=== PATIENT | male | born 1970 | race Caucasian/White ===

== ENCOUNTER 2017-01-22 05:10 | Emergency (ER) | payer MEDICAID ==
[2011-12-14 13:50] VITALS: BMI 21.0
== END 2017-01-22 06:16 | disposition home or self-care (01) ==
LOC: D.ER 05:10
DX: J02.9 Acute pharyngitis, unspecified (principal)

== ENCOUNTER → 2017-06-09 08:51 | Outpatient (CLI) | payer MEDICAID ==
[2011-12-14 13:50] VITALS: BMI 21.0
== END | disposition home or self-care (01) ==
LOC: D.CT 08:51
DX: I70.202 Unspecified atherosclerosis of native arteries of extremities, left leg (principal); M79.605 Pain in left leg

== ENCOUNTER → 2019-06-18 14:09 | Outpatient (CLI) | payer OTHER ==
[2011-12-14 13:50] VITALS: BMI 21.0
[~2019-06-18 14:09] MED LIST: BAYER CHEWABLE81 MG PO; ZANTAC300 MG PO
--- NOTE | 2019-06-24 13:29 | ST ---
PATIENT:PRABHU BENITEZ MEDICAL RECORD: [id number] SEX: M LOCATION:[facility] ORDER #: ADMISSION DATE: 06/18/19 AGE OF PATIENT: 48 REFERRING PHYSICIAN: INTERPRETING PHYSICIAN: ANDRE MARTINEZ MD DATE OF SERVICE: 06/18/2019 PROCEDURE: Treadmill stress test. Baseline ECG is normal. Exercised for 10 minutes on Rai protocol. Maximum heart rate 167 beats per minute, greater than 85% max predicted. No ECG changes of ischemia. No symptoms of ischemia. Normal blood pressure response to exercise. No arrhythmias noted. Good exercise tolerance for age. TRANSINT:[id number] Voice Confirmation ID: [id number] DOCUMENT ID: [id number] ANDRE MARTINEZ MD at 1329 CC: [id number] DICTATION DATE: 06/20/19 1303 [employer]: 06/20/19 1319 DEP CLI 06/18/[address] [id number]
[2019-07-02 16:55] VITALS: BMI 23.1
== END | disposition home or self-care (01) ==
LOC: D.HCCARDIO 14:09
PROVIDERS: ATTEND Internal Medicine Interventional Cardiology
DX: I20.9 Angina pectoris, unspecified (principal)

== ENCOUNTER 2019-07-02 11:17 | Outpatient (CLI) | payer OTHER ==
[~2019-07-02] VITALS: Ht 182.9 cm; Wt 77.3 kg
--- NOTE | ~2019-07-02 | HEMODYNAMI ---
PATIENT:PRABHU BENITEZ MEDICAL RECORD: [id number] : 72 LOCATION:[facility] ADMISSION DATE: 07/02/19 Generatedon:07/02/201916:10 Patient name: PRABHU BENITEZ Patient #: [id number] SSN: [id number] : 1970 Date of study: 07/02/2019 Page: Of Hemodynamic Procedure Report Patient Data Patient Demographics Procedure consent was obtained First Name: PRABHU Gender: Male Last Name: ELI : 1970 [facility] Initial: JM Age: 48 year(s) Patient #: [id number] Race: SSN: [id number] Additional ID: [id number] Contact details Address: [address] [place] [address] [address] State: [place] City: [facility] Zip code: [address] Past Medical History Allergies: No known allergies Admission Admission Data Admission Date: 07/02/2019 Admission Time: 11:17 Arrival Date: 07/02/2019 Arrival Time: 0:00 [facility] #: [id number] Height (in.): 71.65 BSA: 1.98 (m2) Height (cm.): 182 BMI: 23.25 (kg/m2) Weight (lbs.): 169.76 Weight (kg.): 77 Lab Results Lab Result Date: 07/02/2019 Lab Result Time: 0:00 Biochemistry Name Units Result Min Max BUN mg/dl 13 --(--*-)-- 7 18 Creatinine mg/dl 0.8 --(-*--)-- 0.6 1.3 eGFR ml/min 90 --(*---)-- 90 120 NONAFRICAN CBC Name Units Result Min Max Hemoglobin g/dl 15.3 --(-*--)-- 13.5 17.5 Procedure Procedure Types Cath Procedure Diagnostic Procedure PPM/ICD PPM Dual Implant Procedure Description Procedure Date Procedure Date: 07/02/2019 Procedure Start Time: 15:04 Procedure Staff Name Function Willam Bravo MD Assisting physician Emerson White MD Performing Physician Oliva Warren RT Monitor Maureen Noland RT Monitor Nicky Lara RN Nurse Lynsey Otoole RT Scrub Procedure Data Cath Procedure Fluoroscopy Diagnostic fluoroscopy Total fluoroscopy Time: 1.7 time: 1.7 min min Diagnostic fluoroscopy Total fluoroscopy dose: 39 dose: 39 mGy mGy Estimated blood loss: 10 ml Procedure Complications No complications Procedure Medications Medication Administration Route Dosage 0.9% NaCl I.V. 100 ml/hr Oxygen etCO2 Nasal cannula 2 l/min Lidocaine 1% added to field 20 Ancef (1Gm/50ml NS) I.V.P.B 1 g Ancef Irrigation Topical 1 g (1gm/500ml NS) Versed I.V. 2 mg Fentanyl I.V. 100 mcg Versed I.V. 2 mg Fentanyl I.V. 50 mcg Versed I.V. 2 mg Fentanyl I.V. 50 mcg Versed I.V. 1 mg Fentanyl I.V. 50 mcg Phenergan I.V. 25 mg Hemodynamics Rest BSA: 1.98 (m2) HGB: 15.3 (g/dl) O2 Consumption: Estimated: 228.76 (ml/min) O2 Co nsumption indexed: Estimated:115.54 (ml/min/m) Heart Rate: 58 (bpm) Snapshots Pre Cath Intra NCS Post Cath Vital Signs Time Heart Resp SPO2 etCO2 NIBP (mmHg) Rhythm Pain Sedation Rate (ipm) (%) (mmHg) Status Level (bpm) 14:56:24 59 17 100 33.1 125/81(93) SB 0 (11) 10(A) , No pain 15:00:30 56 18 100 32.4 130/77(88) SB 0 (11) 10(A) , No pain 15:04:43 58 17 96 33.1 120/62(77) SB 0 (11) 10(A) , No pain 15:08:49 58 16 97 33.8 110/72(87) SB 0 (11) 10(A) , No pain 15:12:53 57 14 96 21 108/70(98) SB 0 (11) 10(A) , No pain 15:16:55 55 17 98 24 118/73(85) SB 0 (11) 10(A) , No pain 15:32:27 55 14 100 38.3 Measuring SB 0 (11) 10(A) , No pain 15:32:50 57 12 100 40.6 114/74(93) SB 0 (11) 10(A) , No pain 15:36:58 56 12 100 39.8 114/78(95) SB 0 (11) 10(A) , No pain 15:41:05 52 16 100 37.6 105/73(83) SB 0 (11) 9(A) , No pain 15:45:11 51 18 98 44.3 107/68(84) SB 0 (11) 9(A) , No pain 15:49:17 80 17 99 46.6 103/75(94) Paced 0 (11) 9(A) , No pain 15:53:25 59 18 99 45.8 113/67(84) Paced 0 (11) 9(A) , No pain 15:57:31 60 11 99 42.1 108/75(86) Paced 0 (11) 10(A) , No pain 16:01:36 70 14 100 31.5 117/76(91) Paced 0 (11) 10(A) , No pain 16:05:44 15 98 33.8 134/88(103) Paced 0 (11) 10(A) , No pain Medications Time Medication Route Dose Verified Delivered Reason Notes Effecti veness by by 14:55:23 0.9% NaCl I.V. 100 Emerson Chena used for ml/hr [place] Marco procedure MD AZAR 14:55:31 Oxygen etCO2 2 Emerson Nicky used for Nasal l/min Christopher Marco procedure cannula RN 14:55:41 Lidocaine added 20ml Willam Quarles for local 1% to vial Gaby Bravo MD anesthetic field x2 14:55:49 Ancef I.V.P.B 1 g Jain Nicky used for (1Gm/50ml Gaby Lara procedure NS) RN 14:56:00 Ancef Topical 1 g Willam Contrerasian used for Irrigation Gaby Bravo MD procedure (1gm/500ml NS) 15:04:38 Versed I.V. 2 mg Emerson Nicky for [place] Marco sedation RN 15:04:45 Fentanyl I.V. 100 Emerson Hicksyla for mcg [place] Marco sedation RN 15:09:52 Versed I.V. 2 mg Emerson Nicky for [facility] Keyshawn Lara sedation MD AZAR 15:09:56 Fentanyl I.V. 50 Emerson Nicky for mcg St Keyshawn Lara sedation MD AZAR 15:14:19 Versed I.V. 2 mg Emerson Nicky for St Keyshawn reese MD, RN 15:14:25 Fentanyl I.V. 50 Emerson Nick[address] for mcg St Keyshawn reese MD, RN 15:36:20 Versed I.V. 1 mg Emerson Nicky for St Keyshawn reese MD, RN 15:36:26 Fentanyl I.V. 50 Emerson Nick[address] for mcg St Keyshawn reese MD, RN 16:07:35 Phenergan I.V. 25 mg Emerson Nicky for nausea St Keyshawn Lara MD, RN Procedure Log Time Note 14:24:17 Procedure Status Elective Heart Cath (OP). 14:24:20 Time tracking: Regular hours (M-F 7:00 - 5:00) 14:24:20 Nicky Lara RN sent for patient. Start room use. 14:24:24 Plan of Care:Hemodynamics will remain stable., Cardiac rhythm will remain stable., Comfort level will be maintained., Respiratory function will remain adequate., Patient/ family verbilizes understanding of procedure., Procedure tolerated without complication., Recovers from procedure without complications.. 14:32:41 Informed consent obtained and on chart 14:34:27 Arrival Date: 07/02/2019 12:00:00 AM 14:35:06 Patient Height : 71.65 inches 14:35:13 Patient Weight : 169.76 lbs 14:36:19 Lab Result : eGFR NONAFRICAN 90 ml/min 14:36:19 Lab Result : Hemoglobin 15.3 g/dl 14:36:19 Lab Result : BUN 13 mg/dl 14:36:19 Lab Result : Creatinine 0.8 mg/dl 14:37:23 Use device set GABY PPM 14:37:26 2-0 Ticron Multipack ([id number]) opened to sterile field. 14:37:27 3-0 Vicryl Single Pack [id number] opened to sterile field. 14:37:28 5-0 Monocryl PS2 [id number] opened to sterile field. 14:37:30 Cautery Tip Free Lance Model opened to sterile field. 14:37:32 Cautery Pushbutton Pencil opened to sterile field. 14:37:33 Mepilex Dressing (735122) opened to sterile field. 14:37:36 Immobilizer Large opened to sterile field. 14:38:01 Medtronic 4574-45 PPM Lead opened to sterile field. 14:38:07 Medtronic 4074-52 PPM Lead opened to sterile field. 14:38:[address] Generator [id number] opened to sterile field. 14:39:14 Patient received from Pre/Post Procedure Room to CCL 3 Alert and oriented. Tansferred to table in Supine position. 14:44:35 Warm blankets applied, and maria esther hugger turned on for patient comfort. 14:44:36 Correct patient and procedure confirmed by team. 14:44:53 H&P Date Dictated: 07/02/2019 H&P Addendum completed by physician on day of procedure. (MUST COMPLETE FOR ALL OUTPATIENTS), New H&P dictated by physician.. 14:44:58 Pre-procedure instructions explained to patient. 14:44:59 Pre-op teaching completed and patient verbalized understanding. 14:45:04 Family in patients room. 14:45:09 Patient NPO since Midnight. 14:45:27 Patient allergic to No known allergies 14:45:39 Is the patient allergic to Iodine/contrast media? No. 14:45:51 Was the patient premedicated? No 14:46:17 ----Pre-sedation anethsthesia assessment.---- 14:46:38 Previous problem with sedation/anesthesia? No ? 14:46:41 Snore? Yes 14:46:43 Sleep apnea? No 14:46:45 Deviated septum? No 14:46:47 Opens mouth fully? Yes 14:46:49 Sticks out tongue? Yes 14:46:52 Airway obstruction? No ? 14:47:02 Dentures? Yes IN TIGHT 14:53:16 Is patient on blood thinner?No 14:53:23 Patient diabetic? No. 14:55:07 Patient pain scale 0/10 ?. 14:55:13 Vital chart was started 14:55:21 IV patent on arrival in left forearm with 0.9% NaCl at [facility]. 14:55:23 0.9% NaCl 100 ml/hr I.V. was administered by Nicky Lara RN; used for procedure; Verbal order read back and verified. 14:55:31 Lab results completed and on chart. 14:55:31 Oxygen 2 l/min etCO2 Nasal cannula was administered by Nicky Lara RN; used for procedure; Verbal order read back and verified. 14:55:41 Lidocaine 1% 20ml vial x2 added to field was administered by Willam Bravo MD; for local anesthetic; Verbal order read back and verified. 14:55:47 Left chest area was prepped with chlora-prep and draped in sterile fashion 14:55:49 Ancef (1Gm/50ml NS) 1 g I.V.P.B was administered by Nicky Lara RN; used for procedure; Verbal order read back and verified. 14:56:00 Ancef Irrigation (1gm/500ml NS) 1 g Topical was administered by Willam Bravo MD; used for procedure; Verbal order read back and verified. 14:56:01 Alarms reviewed by R. N. 14:56:03 Sharps counted by scrub and verified by R.N. 14:56:25 Baseline sample Acquired. 14:56:39 Rhythm: sinus rhythm 14:56:42 Full Disclosure recording started 14:59:07 [employer] sales representative MEHDI WOODSON present for procedure. 14:59:28 Pre sharps counted by scrub and verified by RN: Sutures: 7; Sponges: 5; Stick needles: 2; Skin needles: 2; Blade: 1; Cautery: 1 14:59:36 Grounding pad site Left thigh. 14:59:39 Grounding pad site free from injury. 15:00:09 Physician paged 15:00:49 Physician arrived 15:00:50 --------ALL STOP TIME OUT------ 15:00:51 Final Timeout: patient, procedure, and site verified with staff and physician. All members of the team are in agreement. 15:00:55 Left chest site verified by team. 15:01:18 Fire Safety Assessment: A--An alcohol-based skin anteseptic being used preoperatively., B--The operative or invasive procedure is being performed above the xiphoid process or in the oropharynx., C--Open oxygen or nitrous oxide is being used. 15:01:30 Physical assessment completed. ASA score P 2 - A patient with mild systemic disease as per Emerson White MD. 15:01:39 Sedation plan: IV Moderate Sedation Medication:Versed, Fentanyl 15:04:15 Procedure started. 15::38 Versed 2 mg I.V. was administered by Nicky Lara RN; for sedation; Verbal order read back and verified. 15:04:40 Lidocaine 1% was administered to left subclavicular area by Willam Bravo MD . 15:04:45 Fentanyl 100 mcg I.V. was administered by Nicky Lara RN; for sedation; Verbal order read back and verified. 15:07:16 Incision made to left subclavicular area. 15:07:19 Generator pocket made/opened. 15:09:52 Versed 2 mg I.V. was administered by Nicky Lara RN; for sedation; Verbal order read back and verified. 15:09:56 Fentanyl 50 mcg I.V. was administered by Nicky Lara RN; for sedation; Verbal order read back and verified. 15:14:19 Versed 2 mg I.V. was administered by Nicky Lara RN; for sedation; Verbal order read back and verified. 15:14:25 Fentanyl 50 mcg I.V. was administered by Nicky Lara RN; for sedation; Verbal order read back and verified. 15:20:30 Full Disclosure recording stopped 15:30:38 Vital chart was started 15:31:24 MEPLIX DRESSING USED TO COVER SITE IN STERILE FASHION, TO MOVE PT TO CCL1 DUE TO FLUORO FAILURE. 15:32:19 IMAGING SYSTEM FAILED, PATIENT MOVED TO [facility] TO PROCEED WITH PROCEDURE. 15:34:13 PT RE PREPPED AND DRAPED IN STERILE FASHION. 15:36:20 Versed 1 mg I.V. was administered by Nicky Lara RN; for sedation; Verbal order read back and verified. 15:36:23 Left chest area was prepped with chlora-prep and draped in sterile fashion 15:36:26 Fentanyl 50 mcg I.V. was administered by Nicky Lara RN; for sedation; Verbal order read back and verified. 15:38:25 Left subclavian vein accessed with 7Fr Peel Away Sheath. 15:41:07 Ventricular lead inserted and advanced. 15:42:02 Ventricular lead positioned. 15:42:14 Ventricular lead tested. 15:43:19 Atrial lead inserted and advanced. 15:43:27 Atrial lead positioned. 15:44:14 Atrial lead tested. 15:44:47 Peel-a-way sheath was split and removed. 15:47:06 Peel-a-way sheath was split and removed. 15:47:36 Atrial lead attachment was completed with 2-0 ticron. 15:47:40 Ventricular lead attachment was completed with 2-0 ticron. 15:48:58 PPM Dual was attached to lead(s) and inserted into pocket. 15:49:41 PPM Dual was inserted subcutaneously to left chest. 15:49:50 Device pocket was irrigated with Ancef. 15:51:58 Generator was sutured in place with 2-0 ticron. 15:53:10 Subcutaneous closure was completed with 3-0 vicryl plus. 15:53:19 Skin closure was completed with 5-0 monocryl. 15:55:12 Parameters--Ventricular P/R Wave: 12.5mV. Current: 0.1mA; Threshold: 0.3V; Impedence: 838OHMS. 15:56:57 Parameters--Atrial P/R Wave: 2.8mV. Current: 0.1mA; Threshold: 0.3V; Impedence: 545OHMS. 15:58:45 Lt Chest incision was dressed with Mepilex dressing. 16:00:10 Parameters-- Generator: Mode: DDDR. Lower Rate: 60bpm. Upper Rate: 120bpm. 16:00:21 Procedure ended.(Physican Out) 16:00:47 Post sharps counted by scrub and verified by RN: Sutures: 7; Sponges: 5; Stick needles: 2; Skin needles: 2; Blade: 1; Cautery: 1 16:01:02 Fluoroscopy time 01.70 minutes. 16:01:08 Fluoroscopy dose: 39 mGy 16:01:08 Flurop Dose total: 39 16:01:17 Dose Area Product 2982 mGy/cm. 16:01:21 Sharps counted by scrub and verified by R.N. 16:01:27 Insertion/operative site no bleeding no hematoma. 16:01:40 Post Chest area:stable 16:01:49 Post procedure rhythm: paced 16::53 Estimated blood loss: 10 ml 16:01:56 Post procedure instruction explained to patient.Patient verbalizes understanding. 16:02:26 Patient needs reinforcement of post procedure teaching. 16:03:26 Procedure and supply charges have been captured, reviewed, submitted and are correct. 16:06:09 Procedure Complication : No complications 16:07:35 Phenergan 25 mg I.V. was administered by Nicky Lara RN; for nausea; Verbal order read back and verified. 16:08:30 Vital chart was stopped 16:08:33 Operative report dictated upon procedure completion. 16:08:34 See physician's report for complete and final results. 16:08:39 Report given to Med II. 16:08:44 Patient transfered to Med II with Stretcher. 16:08:54 End room use (Document Last) Device Usage Item Name Manufacture Quantity Catalog Hospital Part Current Minima l Lot# / Serial# Number Charge Number Stock Stock Code 2-0 Ticron Ethicon 2 [id number] 19275 485862 5 Multipack ([id number]) 3-0 Vicryl Ethicon 1 [id number] 068321 862008 259170 5 Single Pack [id number] 5-0 Monocryl Ethicon 1 Y495G 730483 036046 383940 5 PS2 Y495G Cautery Tip Microtek 1 [id number] 699037 839658 227820 5 Free Lance Model [employer] Cautery Microtek 1 [id number] 73855 343515 5 Pushbutton [employer] Inc[employer] Pencil Mepilex Cardinal 1 524367 451852 503486 099271 5 [facility] ([id number]) Immobilizer Cardinal 1 [id number] 975123 286838 398753 5 [facility] Medtronic Medtronic 1 4574-45 439671 443117 091374 5 [id number] 4574-45 PPM EXP:01-24-2021 Lead Medtronic Medtronic 1 4074-52 516757 697819 551506 5 [id number] 4074-52 PPM EXP:03-25-2021 Lead Medtronic Medtronic 1 [id number] 935896 2465456 887724 [id number] EXP:10-25-2020 Generator [id number] Signature Audit [place] Stage Time Signature Unsigned Intra-Procedure 07/02/2019 Oliva 4:09:17 PM Briana RT(R) (CV) Intra-Procedure 07/02/2019 Nicky Lara 4:09:46 PM RN Intra-Procedure 07/02/2019 Emerson Cortez 4:10:27 PM Keyshawn LI [facility] [address] [place] [address]
[2019-07-02] MEDS ORDERED: ZANTAC300 MG PO (11:43)
[2019-07-02] MEDS ORDERED: BAYER CHEWABLE81 MG PO (11:43)
[2019-07-02 12:05] VITALS: BP 109/3; BMI 23.1
[2019-07-02 12:29] LABS: CALC OSMOLALITY 276 mosm/kg (275-300); CALCIUM 8.7 mg/dL (8.5-10.1); CARBON DIOXIDE 26.6 mmol/L (21.0-32.0); CHLORIDE - SERUM 106 mmol/L (98-107); CREATININE - SERUM 0.8 mg/dL (0.6-1.3); GLUCOSE 86 mg/dL (74-106); POTASSIUM - SERUM 3.9 mmol/L (3.5-5.1); SODIUM 139 mmol/L (136-145); UREA NITROGEN 13 mg/dL (7-18); eGFR NON AFRICAN AMERICAN > 90 mL/min (90-120)
[2019-07-02 12:33] LABS: HEMATOCRIT 44.5 % (42.0-54.0); HEMOGLOBIN 15.3 g/dL (13.5-17.5); MCH 31.5 pg (26.0-34.0); MCHC 34.4 g/dL (31.0-37.0); MCV 91.6 fL (80.0-100.0); MEAN PLATELET VOLUME 9.4 fL (7.4-10.4); RBC 4.86 10x6/uL (4.20-6.10); RDW 12.7 % (11.5-14.5); WBC 7.6 10x3/uL (4.8-10.8)
[2019-07-02 13:03] LABS: APTT 26.7 SECONDS (22.8-39.4); INR 1.02 (0.85-1.17); PROTIME 12.9 SECONDS (11.6-15.0)
--- NOTE | 2019-07-02 16:39 | NUR ---
TRANSFER FROM DICE MANAGER. VS WNL. LEFT CHEST DRSG CDI. LEFT ARM IN SLING. CALL LIGHT IN REACH. WILL CONT. PLAN OF CARE.
[2019-07-02 16:55] VITALS: BP 122/82; Ht 182.9 cm; Wt 77.3 kg
--- NOTE | 2019-07-02 19:30 | NUR ---
RECEIVED BEDSIDE REPORT. PATIENT ALERT AND ORIENTED, SITTING UP IN BED. PATIENT ATTEMPTING TO EAT FOOD THAT WAS BROUGHT INTO HIM. NEEDS MET. NO S/S OF DISTRESS. NO C/O PAIN. CALL LIGHT WITHIN REACH. WILL CPOC.
[2019-07-02 20:00] VITALS: BP 116/74
[2019-07-03] VITALS: BP 103/54
[2019-07-03 04:00] VITALS: BP 118/70
--- NOTE | 2019-07-03 08:56 | OP ---
PATIENT NAME: PRABHU BENITEZ MEDICAL RECORD: [id number] :72 LOCATION:D.M2 D.2115 ADMISSION DATE: SURGEON: ANDRE MARTINEZ MD DATE OF OPERATION: 07/02/2019 PROCEDURE: Lead portion for permanent pacemaker placement. INDICATIONS: Sick sinus syndrome with high-degree AV block and supraventricular arrhythmias. DESCRIPTION OF PROCEDURE: After left subclavian was cannulated via modified Seldinger technique via Dr. Bravo, first under fluoroscopic guidance, I placed the RV lead in the RV apex. After adequate R waves and thresholds were obtained, again under fluoroscopic guidance, I placed the right atrial lead in the right atrial appendage without difficulty. After adequate P waves and thresholds were obtained, leads were attached to appropriate poles of the generator and the pocket was closed via Dr. Bravo. IMPRESSION: Successful lead portion for permanent pacemaker placement. ESTIMATED BLOOD LOSS: Minimal. DISPOSITION: To the floor, stable. COMPLICATIONS: None. TRANSINT:[id number] Voice Confirmation ID: [id number] DOCUMENT ID: [id number] ANDRE MARTINEZ MD at 0856 CC: [id number] DICTATION DATE: 07/02/19 1552 TRANSLATOR: 07/02/19 2258 [facility] [address] [place] [place] [id number]
--- NOTE | 2019-07-03 09:42 | NUR ---
PATIENT HAS NOT HAD A FLU SHOT PRIOR TO ADMIT. WHEN ASKED IF HE WANTS ONE BEFROE DISCHARGE, HE REFUSED. FAMILY AT BEDSIDE.
--- NOTE | 2019-07-03 10:26 | NUR ---
IV AND TELEMETRY DCD. DC PLANS GIVEN. UNDERSTANDING VOICED. ESCORTED TO CAR BY W/C.
--- NOTE | 2019-07-04 13:49 | OP ---
PATIENT NAME: PRABHU BENITEZ MEDICAL RECORD: [id number] :72 LOCATION:D.DIXIE ADMISSION DATE: SURGEON: WILLAM GRIFFIN MD DATE OF OPERATION: 07/02/2019 PREOPERATIVE DIAGNOSIS: Sick sinus syndrome with pauses. POSTOPERATIVE DIAGNOSIS: Sick sinus syndrome with pauses. PROCEDURE: 1. Left subclavian vein dual lead pacemaker placement. 2. Fluoroscopic interpretation. SURGEON: Willam Griffin MD CO-SURGEON: Emerson Hopkins MD REPORT OF OPERATION: The patient's left chest was prepped and draped in sterile fashion. A 20 mL of 1% lidocaine with epinephrine was infused into the left upper outer chest. A transverse incision was made on the left upper outer chest and a subcutaneous pouch was made over the pectoral fascia. [place] were used to cannulate the left subclavian vein and guidewires were advanced with ease. We did this on 2 separate occasions. After this, a dilator trocar device was placed over the wires and the wires and dilators were removed. The leads were advanced through the trocars and using fluoroscopic guidance, these were advanced into position. At this point, Dr. Hopkins positioned the leads appropriately in the atrium and the ventricle. Once the leads were noted to be functioning appropriately, then they were sutured into place with 2-0 TiCron. The leads were affixed to the pacemaker, which was placed into the subcutaneous pouch. This was sutured to the pectoral fascia with a single interrupted 2-0 TiCron. We irrigated out the wound with antibiotic solution. The subcutaneous tissues were reapproximated with interrupted 3-0 Vicryl and the skin was closed with running subcutaneous 5-0 Monocryl. COMPLICATIONS: None. CONDITION: Stable. ANESTHESIA: Local MAC. BLOOD LOSS: Minimal. TRANSINT:[id number] Voice Confirmation ID: [id number] DOCUMENT ID: [id number] WILLAM GRIFFIN MD at 1349 CC: [id number] DICTATION DATE: 07/02/19 1557 SINK CUTTER: 07/02/19 6236 DEP CLI 07/03/19 [place] [id number]
== END 2019-07-03 10:27 ==
LOC: D.CATH 11:17 → D.M2 16:29 → D.CATH 07-03 10:27
PROVIDERS: ATTEND Internal Medicine Interventional Cardiology
DX: I49.5 Sick sinus syndrome (principal)